=== PATIENT | female | born 1975 | race African-American/Black ===

== ENCOUNTER 2023-03-16 09:29 | Day surgery (SDC) | payer OTHER ==
[2023-01-20 11:41] VITALS: BMI 29.7
[2023-03-16 11:56] VITALS: TEMP 97.3
[2023-03-16 13:08] VITALS: BP 112/70; PULSE 67; RESP 19
== END 2023-03-16 13:08 | disposition home or self-care (01) ==
LOC: FASU-ENDO 09:29
PROVIDERS: ATTEND Internal Medicine Gastroenterology
PROC: 0DJD8ZZ Inspection of Lower Intestinal Tract, Via Natural or Artificial Opening Endoscopic (ICD-10-PCS; principal; 2023-03-16 11:30)
DX: Z12.11 Encounter for screening for malignant neoplasm of colon (principal); K64.0 First degree hemorrhoids